=== PATIENT | male | born 1945 | race Caucasian/White ===

== ENCOUNTER 2017-03-13 07:09 | Day surgery (SDC) | payer MEDICARE, OTHER ==
[~2017-03-13] VITALS: Ht 177.8 cm; Wt 77.1 kg
[~2017-03-13 07:09] MED LIST: ASPI325T24 PO; ATOR1TAB21 PO; FOLI1TAB4 PO; IRON65TA PO; METO25TA4 PO; MULT1TAB10 PO; VITA500T PO; folic acid
[2017-03-13] MEDS ORDERED: NS 1,000 ML IV ONE (07:15)
[2017-03-13] MEDS ORDERED: LIDOCAINE 2% INJ 100 MG/5 ML SDV (FOR ANES.) As Ordered ONE (08:21)
[2017-03-13] MEDS ORDERED: PROPOFOL 200 MG/20 ML VIAL As Ordered ONE ×2 (08:21→08:35)
[2017-03-13] MEDS ORDERED: ePHEDrine SULFATE 25 MG/5 ML(5MG/ML) SYRINGE As Ordered ONE (08:22)
--- NOTE | 2017-03-13 08:29 | ROOR ---
Patient Name: Alexandru Ariza Procedure Date: 03/13/2017 8:10 AM Date of : 1945 Age: 71 Room: [facility] Gender: Male Note Status: Finalized Procedure: Upper Endoscopy + Biopsies Indications: Epigastric abdominal pain, Heartburn Providers: Lucas Thao MD Referring MD: Lucas Lou MD Requesting Provider: Medicines: Monitored Anesthesia Care Complications: No immediate complications. Procedure: Pre-Anesthesia Assessment: - The heart rate, respiratory rate, oxygen saturations, blood pressure, adequacy of pulmonary ventilation, and response to care were monitored throughout the procedure. The Endoscope was introduced through the mouth, and advanced to the second part of duodenum. The upper GI endoscopy was accomplished without difficulty. The patient tolerated the procedure well. Findings: The Z-line was regular and was found 40 cm from the incisors. One non-bleeding cratered gastric ulcer with no stigmata of bleeding was found on the posterior wall of the stomach. Biopsies were taken with a cold forceps for histology. Localized mild inflammation characterized by congestion (edema) and erythema was found in the gastric antrum. Biopsies were taken with a cold forceps for Helicobacter pylori testing. The exam of the duodenum was otherwise normal. Impression: - Z-line regular, 40 cm from the incisors. - Non-bleeding gastric ulcer with no stigmata of bleeding. Biopsied. - Chronic gastritis. Biopsied. - The examination was otherwise normal. Recommendation: - Patient has a contact number available for emergencies. The signs and symptoms of potential delayed complications were discussed with the patient. Return to normal activities tomorrow. Written discharge instructions were provided to the patient. - High fiber diet. - Discharge patient to home. - Continue present medications. - Await pathology results. - Telephone GI clinic for pathology results in 1 week. - Check Portal Online for Path Results.([email or web address]) - Return to referring physician. - The findings and recommendations were discussed with the patient's family. Lucas Thao MD Lucas Thao MD 03/13/2017 8:28:52 AM This report has been signed electronically. Number of Addenda: 0 Note Initiated On: 03/13/2017 8:10 AM Estimated Blood Loss: Estimated blood loss: none.
--- NOTE | 2017-03-13 08:49 | ROOR ---
Patient Name: Alexandru Ariza Procedure Date: 03/13/2017 8:12 AM Date of : 1945 Age: 71 Room: [facility] Gender: Male Note Status: Finalized Procedure: Total Colonoscopy to cecum + Biopsy Polypectomy Indications: Screening for colorectal malignant neoplasm Providers: Lucas Thao MD Referring MD: Lucas Lou MD Requesting Provider: Medicines: Monitored Anesthesia Care Complications: No immediate complications. Procedure: Pre-Anesthesia Assessment: - The heart rate, respiratory rate, oxygen saturations, blood pressure, adequacy of pulmonary ventilation, and response to care were monitored throughout the procedure. The Colonoscope was introduced through the anus and advanced to the cecum, identified by appendiceal orifice and ileocecal valve. The colonoscopy was performed without difficulty. The patient tolerated the procedure well. The quality of the bowel preparation was good. Findings: The perianal and digital rectal examinations were normal. Non-bleeding internal hemorrhoids were found during retroflexion. The hemorrhoids were small and Grade I (internal hemorrhoids that do not prolapse). A small polyp was found at 30 cm proximal to the anus. The polyp was sessile. The polyp was removed with a cold biopsy forceps. Resection and retrieval were complete. A small polyp was found in the cecum. The polyp was sessile. The polyp was removed with a jumbo cold forceps. Resection and retrieval were complete. The exam was otherwise without abnormality on direct and retroflexion views. Impression: - Non-bleeding internal hemorrhoids. - One small polyp at 30 cm proximal to the anus, removed with a cold biopsy forceps. Resected and retrieved. - One small polyp in the cecum, removed with a jumbo cold forceps. Resected and retrieved. - The examination was otherwise normal on direct and retroflexion views. - The exam was otherwise normal to the cecum. Recommendation: - Patient has a contact number available for emergencies. The signs and symptoms of potential delayed complications were discussed with the patient. Return to normal activities tomorrow. Written discharge instructions were provided to the patient. - High fiber diet. - Discharge patient to home. - Continue present medications. - Await pathology results. - Telephone GI clinic for pathology results in 1 week. - Repeat colonoscopy in 5 years for surveillance based on pathology results. - Return to referring physician. - Check Portal Online for Path Results.([email or web address] - The findings and recommendations were discussed with the patient's family. Lucas Thao MD Lucas Thao MD 03/13/2017 8:49:08 AM This report has been signed electronically. Number of Addenda: 0 Note Initiated On: 03/13/2017 8:12 AM Estimated Blood Loss: Estimated blood loss: none.
[2017-03-13 09:15] VITALS: BP 114/59
== END 2017-03-13 09:35 | disposition home or self-care (01) ==
LOC: M OPP 07:09
PROVIDERS: ATTEND Internal Medicine Gastroenterology
DX: Z12.11 Encounter for screening for malignant neoplasm of colon (principal); K64.0 First degree hemorrhoids; K63.5 Polyp of colon; R10.13 Epigastric pain; C16.9 Malignant neoplasm of stomach, unspecified; K29.50 Unspecified chronic gastritis without bleeding; E78.5 Hyperlipidemia, unspecified; D64.9 Anemia, unspecified; I25.810 Atherosclerosis of coronary artery bypass graft(s) without angina pectoris; R03.0 Elevated blood-pressure reading, without diagnosis of hypertension; R06.09 Other forms of dyspnea; F43.12 Post-traumatic stress disorder, chronic; Z79.82 Long term (current) use of aspirin; Z79.899 Other long term (current) drug therapy; Z79.891 Long term (current) use of opiate analgesic

== ENCOUNTER → 2017-03-19 | Outpatient (CLI) | payer MEDICARE, OTHER ==
[~2017-03-19] MED LIST changes: +GASTROGRAFIN SOLUTION 30ML (Q9963) As Ordered ONE; +ISOVUE-370 76% 100ML VIAL (Q9967) As Ordered ONE
--- NOTE | 2017-03-19 16:27 | REP ---
Clinical: Gastrointestinal ulceration. Rule out malignancy/metastatic disease. Technique: Axial contrast enhanced images from the thoracic inlet to the upper abdomen using 100 ml Isovue 370 intravenous contrast material with coronal and sagittal re-formations. Comparison: None. Findings: Small left pleural effusion is appreciated with adjacent passive atelectasis. Area of curvilinear presumed scarring along the periphery of the right lower lobe (images 52 - 82) noted. No further consolidation, significant nodule or mass lesion is appreciated. The tracheobronchial tree is patent. Mediastinum demonstrates atherosclerotic changes to the thoracic aorta and coronary arteries without aortic aneurysm/dissection or cardiomegaly. No pericardial effusion. Evidence for prior sternotomy and CABG noted. Osseous structures demonstrate age-related changes without focal osseous abnormality. Impression: 1. Small left pleural effusion and passive atelectasis. 2. Presumed chronic curvilinear scarring along the right lower lobe. Signed by Abhi William MD 03/19/2017 04:19 P
--- NOTE | 2017-03-19 16:29 | REP ---
Clinical: Gastrointestinal ulceration. Rule out malignancy/metastatic disease. Technique: Axial contrast enhanced images from the lung bases to the pubic symphysis using oral and 100 ml Isovue 370 intravenous contrast material with precontrast and delayed images of the abdomen as well as coronal and sagittal re-formations. Comparison: None. Findings: Lung bases demonstrate small left pleural effusion and passive atelectasis along with linear scarring in the periphery of the right lower lobe. Visualized portions of the heart and pericardium suggest prior cardiac surgery. Liver, spleen, pancreas, gallbladder, bilateral adrenal glands and kidneys are normal. The enteric system is without obstruction or acute inflammatory process no obvious focal at abnormalities appreciated. Normal terminal ileum and appendix are identified in the right lower quadrant. Pelvis demonstrates normal bladder and age appropriate prostate/seminal vesicles. No pelvic fluid or ascites. No free air. No obvious adenopathy or solitary mass lesion. Atherosclerotic changes to the aorta and vasculature noted without aneurysm or dissection. Musculoskeletal structures demonstrate age-related degenerative changes without focal osseous abnormality. Impression: 1. Small left pleural effusion with passive atelectasis and chronic scarring in the right lung base. 2. No acute abdominopelvic pathology appreciated. 3. No ascites, adenopathy, or solitary mass lesion appreciated. Signed by Abhi William MD 03/19/2017 04:22 P
== END ==
LOC: M RAD 14:12
PROVIDERS: ATTEND Internal Medicine Gastroenterology
DX: R10.13 Epigastric pain (principal); C16.2 Malignant neoplasm of body of stomach; J90 Pleural effusion, not elsewhere classified; J98.11 Atelectasis
CPT/HCPCS: 71260; 74178; Q9963; Q9967

== ENCOUNTER → 2017-04-02 | Outpatient (CLI) | payer MEDICARE, OTHER ==
[~2017-04-02] MED LIST changes: -GASTROGRAFIN SOLUTION 30ML (Q9963) As Ordered ONE; -ISOVUE-370 76% 100ML VIAL (Q9967) As Ordered ONE
--- NOTE | 2017-04-02 22:14 | REP ---
Whole body PET CT scan: Comparison is a studies are the CT of the chest abdomen and pelvis dated 03/19/2017. Gastric adenocarcinoma was identified on a biopsy specimen obtained during gastroscopy. Whole-body scanning is performed from skull base to the upper thighs. Neck and supraclavicular areas: There are no hypermetabolic foci. Chest: There are no hypermetabolic foci. There is a left pleural effusion. There is no hypermetabolic activity associated with this effusion. Abdomen, pelvis and upper thighs: There is a hypermetabolic focus in the posterior gastric wall along the greater curvature of the gastric body measuring 2.8 cm maximal diameter with a maximal standard uptake value of 4.1. On the accompanying CT, there appears to be focal gastric wall thickening in the location of this hypermetabolic focus, however, it should be noted that CT is insensitive for gastric wall thickening. Because of peristalsis an incomplete gastric distension. There are no other hypermetabolic foci in the abdomen, pelvis or upper thighs. Impression: There is a hypermetabolic focus in the posterior gastric wall as described. There are no other hypermetabolic foci. The studies performed with 10 mCi of F 18 FDG. Signed by David Monge MD 04/02/2017 10:06 P
== END ==
LOC: M PLARAD 10:11
PROVIDERS: ATTEND Surgery
DX: C16.2 Malignant neoplasm of body of stomach (principal); I25.10 Atherosclerotic heart disease of native coronary artery without angina pectoris; E78.5 Hyperlipidemia, unspecified; J90 Pleural effusion, not elsewhere classified
CPT/HCPCS: 78815; A9552

== ENCOUNTER → 2017-05-08 | Outpatient (REF) | payer MEDICARE, OTHER ==
[2017-05-08 16:00] LABS: INR 0.94; PROTHROMBIN TIME 12.7 SECONDS (12.4-14.5)
[2017-05-08 16:01] LABS: PARTIAL THROMBOPLASTIN TIME 28.9 SECONDS (26.8-37.9)
[2017-05-10 17:02] LABS: CARCINOEMBRYONIC ANTIGEN < 0.5 NG/ML (<2.5)
== END ==
LOC: M LAB REF 15:02
DX: C16.9 Malignant neoplasm of stomach, unspecified (principal); Z79.899 Other long term (current) drug therapy
CPT/HCPCS: 82378

== ENCOUNTER → 2017-05-17 | Outpatient (CLI) | payer MEDICARE, OTHER ==
[~2017-05-17] MED LIST changes: -ASPI325T24 PO; -ATOR1TAB21 PO; -FOLI1TAB4 PO; -IRON65TA PO; +LIDOCAINE 2% MDV 20 ML VIAL As Ordered; -METO25TA4 PO; -MULT1TAB10 PO; -VITA500T PO; -folic acid
== END | disposition home or self-care (01) ==
LOC: M IRPRO 09:40
DX: C16.9 Malignant neoplasm of stomach, unspecified (principal)
CPT/HCPCS: 36561

== ENCOUNTER → 2018-01-08 | Outpatient (CLI) | payer MEDICARE, OTHER | END | disposition home or self-care (01) | LOC: M IRPRO 09:13 | DX: Z45.2 Encounter for adjustment and management of vascular access device (principal); C16.9 Malignant neoplasm of stomach, unspecified | CPT/HCPCS: 36590 ==

== ENCOUNTER → 2018-06-30 | Outpatient (CLI) | payer MEDICARE ==
[~2018-06-30] MED LIST changes: +ASPI325T25 PO; +ATOR1TAB21 PO; +ATOR80TA59 PO; +FOLI1TAB11 PO; +GASTROGRAFIN SOLUTION 30ML (Q9963) As Ordered ONE; +IRON65TA PO; +ISOVUE-370 76% 100ML VIAL (Q9967) As Ordered ONE; -LIDOCAINE 2% MDV 20 ML VIAL As Ordered; +METO25TA4 PO; +MULT1TAB10 PO; +VITA500T PO; +VITAD1000T PO; +folic acid
--- NOTE | 2018-06-30 15:51 | REP ---
CT of the chest with IV contrast: Comparison is 07/30/2017. There is a small left pleural effusion, not significantly changed in size. However, the small nodules along the visceral pleura associated with this pleural effusion on the prior study are no longer present. There are no lung masses or nodules. There are zones of fibro linear scarring in the superior segment right lower lobe, unchanged. Sternotomy wires are again noted. The thoracic aorta is unremarkable. Cardiac size is normal. There is no pericardial effusion. Impression: Persisting small left pleural effusion, unchanged in size. The pleural nodular thickening identified associated with this effusion previously is no longer present. There is a small pericardial effusion, unchanged. No adenopathy. No masses or nodules. Electronically Signed by David Monge MD 06/30/2018 03:42 P
--- NOTE | 2018-06-30 16:02 | REP ---
CT of the abdomen pelvis with IV and oral contrast: Comparison is 07/30/2017. There is a small left pleural effusion, unchanged in size. The small pleural nodules associated with this effusion previously are no longer present. The hepatic parenchyma is homogeneous. The gallbladder and pancreas are unremarkable. There are surgical clips in the upper abdomen, as an interval change. The spleen is of normal size and unremarkable. The adrenals and kidneys are unremarkable. The abdominal aorta is unremarkable except for occasional calcified atheroma. No periaortic adenopathy is identified. No mesenteric adenopathy is identified. There is no ascites. Pelvis: There is no adenopathy or ascites. However, there is minimal body fat outlining tissue planes. The bladder is unremarkable. Impression: There is no adenopathy, mass or ascites. There are surgical clips in the upper abdomen as an interval change. Persisting small left pleural effusion. Small pleural nodules associated with this effusion previously are no longer present. Electronically Signed by David Monge MD 06/30/2018 03:54 P
== END ==
LOC: M RAD 12:11
PROVIDERS: ATTEND Nurse Practitioner Family
DX: C16.9 Malignant neoplasm of stomach, unspecified (principal); J90 Pleural effusion, not elsewhere classified; I31.3 Pericardial effusion (noninflammatory)
CPT/HCPCS: 71260; 74177; Q9963; Q9967

== ENCOUNTER 2018-09-01 07:36 | Day surgery (SDC) | payer MEDICARE ==
[~2018-09-01] VITALS: Ht 177.8 cm; Wt 64.6 kg
[~2018-09-01 07:36] MED LIST changes: +ASPI-255 PO; -ASPI325T25 PO; +ASPI81TA26 PO; -GASTROGRAFIN SOLUTION 30ML (Q9963) As Ordered ONE; -ISOVUE-370 76% 100ML VIAL (Q9967) As Ordered ONE; +MULTCAP PO; +NS 1,000 ML IV ONE
[2018-09-01] MEDS ORDERED: PROPOFOL 500 MG/50 ML VIAL As Ordered ONE (10:46)
[2018-09-01] MEDS ORDERED: LIDOCAINE 2% INJ 100 MG/5 ML SDV (FOR ANES.) As Ordered ONE (10:46)
[2018-09-01] MEDS ORDERED: fentaNYL 100 MCG/2 ML INJECTION (J3010) As Ordered ONE (10:46)
--- NOTE | 2018-09-01 10:59 | ROOR ---
Patient Name: Alexandru Ariza Procedure Date: 09/01/2018 10:48 AM Date of : 1945 Age: 72 Room: [facility] Gender: Male Note Status: Finalized Procedure: Upper GI endoscopy Indications: Personal history of gastrectomy, Personal history of malignant gastric neoplasm Providers: Lucas Thao MD Referring MD: Lucas BRYAN MD Requesting Provider: Medicines: Monitored Anesthesia Care Complications: No immediate complications. Procedure: Pre-Anesthesia Assessment: - The heart rate, respiratory rate, oxygen saturations, blood pressure, adequacy of pulmonary ventilation, and response to care were monitored throughout the procedure. The Endoscope was introduced through the mouth, and advanced to the operative stoma of duodenum. The upper GI endoscopy was accomplished without difficulty. The patient tolerated the procedure well. Findings: The Z-line was regular and was found 40 cm from the incisors. 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 This was characterized by healthy appearing mucosa. The exam was otherwise without abnormality. Impression: - Z-line regular, 40 cm from the incisors. - A sleeve gastrectomy was found, characterized by healthy appearing mucosa. - The examination was otherwise normal. - No specimens collected. - The examination was otherwise normal. Recommendation: - Patient has a contact number available for emergencies. The signs and symptoms of potential delayed complications were discussed with the patient. Return to normal activities tomorrow. Written discharge instructions were provided to the patient. - Resume previous diet. - Discharge patient to home. - Continue present medications. - Return to referring physician. - The findings and recommendations were discussed with the patient's family. Lucas Thao MD Lucas Thao MD 09/01/2018 10:59:08 AM Electronically signed by Lucas Thao MD Number of Addenda: 0 Note Initiated On: 09/01/2018 10:48 AM Estimated Blood Loss: Estimated blood loss: none.
[2018-09-01 11:17] VITALS: BP 108/62
== END 2018-09-01 11:27 | disposition home or self-care (01) ==
LOC: M OPP 07:36
PROVIDERS: ATTEND Internal Medicine Gastroenterology
DX: Z85.028 Personal history of other malignant neoplasm of stomach (principal); Z90.3 Acquired absence of stomach [part of]
CPT/HCPCS: 43235; J3010

== ENCOUNTER → 2019-06-08 | Outpatient (CLI) | payer OTHER, MEDICARE ==
[~2019-06-08] MED LIST changes: +CHOL100029 PO; +GASTROGRAFIN SOLUTION 30ML (Q9963) As Ordered ONE; +ISOVUE-370 76% 100ML VIAL (Q9967) As Ordered ONE; -NS 1,000 ML IV ONE; -VITAD1000T PO
--- NOTE | 2019-06-08 16:15 | REP ---
Clinical: Gastric carcinoma. Technique: Axial contrast enhanced images from the thoracic inlet to the upper abdomen with coronal and sagittal re-formations using 100 ml Isovue 370 intravenous contrast material. Comparison: 06/30/2018, 07/30/2017 Findings: Bilateral lung renae are well-aerated and clear. Previously noted left pleural effusion has resolved. Minimal scattered chronic scarring noted at the lung bases (right greater than left). No consolidation, significant nodule or mass lesion. No pleural effusion. No pneumothorax. Tracheobronchial tree is patent. No significant adenopathy. Mediastinum demonstrates evidence for prior CABG. Osseous structures without focal abnormality. Impression: Chronic stable changes. No acute mediastinal or pleuroparenchymal process. No evidence for metastatic disease. Electronically Signed by Abhi William MD 06/08/2019 04:06 P
--- NOTE | 2019-06-08 16:18 | REP ---
Clinical: History of gastric carcinoma for followup. Technique: Axial contrast enhanced images from the lung bases to the pubic symphysis using oral (per protocol) and 100 ml Isovue 370 intravenous contrast material with coronal and sagittal re-formations as well as delayed images of the abdomen. Comparison: 06/30/2018, 07/30/2017 Findings: Postsurgical changes in the epigastric region related to the stomach remains stable and there is no evidence for obvious focal recurrence, mass or adenopathy. Liver, spleen, pancreas, gallbladder, bilateral adrenal glands and kidneys are normal. The enteric system is without obstruction or acute inflammatory process although mild fecal stasis cannot be excluded. Pelvis demonstrates normal bladder and age appropriate prostate/seminal vesicles. No ascites. No free air. No obvious intraperitoneal or retroperitoneal adenopathy. No obvious intra-abdominal mass lesion. Abdominal aorta and vasculature demonstrate atherosclerotic changes without aneurysm or dissection. Musculoskeletal structures demonstrate degenerative changes without focal abnormality. Impression: Postsurgical changes in the upper abdomen remains stable and there is no evidence for focal recurrence or metastatic disease. No adenopathy. No ascites. Electronically Signed by Abhi William MD 06/08/2019 04:10 P
== END ==
LOC: M RAD 13:50
PROVIDERS: ATTEND Internal Medicine
DX: C16.9 Malignant neoplasm of stomach, unspecified (principal)
CPT/HCPCS: 71260; 74177; Q9963; Q9967

== ENCOUNTER → 2020-09-07 | Outpatient (CLI) | payer OTHER, MEDICARE ==
[~2020-09-07] MED LIST changes: -GASTROGRAFIN SOLUTION 30ML (Q9963) As Ordered ONE; -ISOVUE-370 76% 100ML VIAL (Q9967) As Ordered ONE; +MAGN400C PO; +VITA-243 PO; -VITA500T PO
== END ==
LOC: M LABSMTC 11:20
PROVIDERS: ATTEND Anesthesiology
DX: Z01.812 Encounter for preprocedural laboratory examination (principal); Z20.822 Contact with and (suspected) exposure to COVID-19

== ENCOUNTER 2020-09-12 10:05 | Day surgery (SDC) | payer MEDICARE, OTHER ==
[~2020-09-12] VITALS: Ht 175.3 cm; Wt 63.5 kg
[~2020-09-12 10:05] MED LIST changes: +LIDOCAINE 2% 100MG/5ML SDV (FOR ANES.) As Ordered ONE; +NS 1,000 ML IV ONE; +propofoL 500 MG/50 ML VIAL As Ordered ONE
[2020-09-12] MEDS ORDERED: ePHEDrine SULFATE 25 MG/5 ML(5MG/ML) SYRINGE As Ordered ONE (11:32)
--- NOTE | 2020-09-12 11:33 | ROOR ---
Patient Name: Alexandru Ariza Procedure Date: 09/12/2020 11:18 AM Date of : 1945 Age: 74 Room: [facility] Gender: Male Note Status: Finalized Procedure: Upper GI endoscopy Indications: Abnormal CT of the GI tract Providers: Lucas Thao MD Referring MD: [facility], Admin. Requesting Provider: Medicines: Monitored Anesthesia Care Complications: No immediate complications. Procedure: Pre-Anesthesia Assessment: - The heart rate, respiratory rate, oxygen saturations, blood pressure, adequacy of pulmonary ventilation, and response to care were monitored throughout the procedure. The Endoscope was introduced through the mouth, and advanced to the second part of duodenum. The upper GI endoscopy was accomplished without difficulty. The patient tolerated the procedure well. Findings: The Z-line was regular and was found 40 cm from the incisors. Evidence of a Jayson-en-Y gastrojejunostomy was found. The gastrojejunal anastomosis was characterized by healthy appearing mucosa. The jejunojejunal anastomosis was characterized by healthy appearing mucosa. The exam was otherwise without abnormality. Impression: - Z-line regular, 40 cm from the incisors. - Jayson-en-Y gastrojejunostomy with gastrojejunal anastomosis characterized by healthy appearing mucosa. - The examination was otherwise normal. - No specimens collected. - The examination was otherwise normal. Recommendation: - Patient has a contact number available for emergencies. The signs and symptoms of potential delayed complications were discussed with the patient. Return to normal activities tomorrow. Written discharge instructions were provided to the patient. - Resume previous diet. - Discharge patient to home. - Continue present medications. - Return to referring physician. - The findings and recommendations were discussed with the patient's family. Procedure Code(s): --- Professional --- 60027, Esophagogastroduodenoscopy, flexible, transoral; diagnostic, including collection of specimen(s) by brushing or washing, when performed (separate procedure) Diagnosis Code(s): --- Professional --- Z98.0, Intestinal bypass and anastomosis status R93.3, Abnormal findings on diagnostic imaging of other parts of digestive tract CPT copyright 2019 [employer]. All rights reserved. The codes documented in this report are preliminary and upon information coder review may be revised to meet current compliance requirements. Lucas Thao MD Lucas Thao MD 09/12/2020 11:33:14 AM Electronically signed by Lucas Thao MD Number of Addenda: 0 Note Initiated On: 09/12/2020 11:18 AM Estimated Blood Loss: Estimated blood loss: none.
[2020-09-12] MEDS ORDERED: fentaNYL 100 MCG/2 ML INJECTION (J3010) As Ordered ONE (11:35)
--- NOTE | 2020-09-12 11:54 | ROOR ---
Patient Name: Alexandru Ariza Procedure Date: 09/12/2020 11:18 AM Date of : 1945 Age: 74 Room: [facility] Gender: Male Note Status: Finalized Procedure: Total Colonoscopy to Cecum Indications: Abnormal CT of the GI tract Providers: Lucas Thao MD Referring MD: [facility], Admin. Requesting Provider: Medicines: Monitored Anesthesia Care Complications: No immediate complications. Procedure: Pre-Anesthesia Assessment: - The heart rate, respiratory rate, oxygen saturations, blood pressure, adequacy of pulmonary ventilation, and response to care were monitored throughout the procedure. The Colonoscope was introduced through the anus and advanced to the cecum, identified by appendiceal orifice and ileocecal valve. The colonoscopy was performed without difficulty. The patient tolerated the procedure well. The quality of the bowel preparation was good. Findings: The perianal and digital rectal examinations were normal. Hemorrhoids were found during retroflexion. The hemorrhoids were small and Grade I (internal hemorrhoids that do not prolapse). No other significant abnormalities were identified in a careful examination of the remainder of the colon. The exam was otherwise without abnormality on direct and retroflexion views. Impression: - Hemorrhoids. - The examination was otherwise normal on direct and retroflexion views. - No specimens collected. - The exam was otherwise normal to the cecum. Recommendation: - Patient has a contact number available for emergencies. The signs and symptoms of potential delayed complications were discussed with the patient. Return to normal activities tomorrow. Written discharge instructions were provided to the patient. - High fiber diet. - Discharge patient to home. - Continue present medications. - Repeat colonoscopy is not recommended due to current age (66 years or older) for screening purposes. - Return to referring physician. - The findings and recommendations were discussed with the patient's family. Procedure Code(s): --- Professional --- 45797, Colonoscopy, flexible; diagnostic, including collection of specimen(s) by brushing or washing, when performed (separate procedure) Diagnosis Code(s): --- Professional --- K64.0, First degree hemorrhoids R93.3, Abnormal findings on diagnostic imaging of other parts of digestive tract CPT copyright 2019 [employer]. All rights reserved. The codes documented in this report are preliminary and upon dinkey engine firer/fireman review may be revised to meet current compliance requirements. Lucas Thao MD Lucas Thao MD 09/12/2020 11:53:51 AM Electronically signed by Lucas Thao MD Number of Addenda: 0 Note Initiated On: 09/12/2020 11:18 AM Estimated Blood Loss: Estimated blood loss: none.
[2020-09-12 12:30] VITALS: BP 113/65
== END 2020-09-12 12:35 | disposition home or self-care (01) ==
LOC: M OPP 10:05
PROVIDERS: ATTEND Internal Medicine Gastroenterology
DX: R93.3 Abnormal findings on diagnostic imaging of other parts of digestive tract (principal); Z98.0 Intestinal bypass and anastomosis status; K64.0 First degree hemorrhoids; C16.9 Malignant neoplasm of stomach, unspecified; Z79.899 Other long term (current) drug therapy; Z87.891 Personal history of nicotine dependence
CPT/HCPCS: 43235; 45378; J3010

== ENCOUNTER → 2021-09-26 | Outpatient (CLI) | payer OTHER ==
[~2021-09-26] MED LIST changes: +CYAN1000VL IM; +GASTROGRAFIN SOLUTION 30ML (Q9963) As Ordered ONE; +ISOVUE-370 76% 100ML VIAL As Ordered ONE; -LIDOCAINE 2% 100MG/5ML SDV (FOR ANES.) As Ordered ONE; -NS 1,000 ML IV ONE; -propofoL 500 MG/50 ML VIAL As Ordered ONE
== END ==
LOC: M RAD 12:16
PROVIDERS: ATTEND Internal Medicine Hematology & Oncology
DX: C16.2 Malignant neoplasm of body of stomach (principal); Z90.49 Acquired absence of other specified parts of digestive tract; I70.0 Atherosclerosis of aorta; K59.00 Constipation, unspecified; M47.817 Spondylosis without myelopathy or radiculopathy, lumbosacral region
CPT/HCPCS: 71260; 74177; Q9963; Q9967

== ENCOUNTER → 2022-05-24 | Outpatient (CLI) | payer MEDICARE, OTHER ==
[~2022-05-24] MED LIST changes: -GASTROGRAFIN SOLUTION 30ML (Q9963) As Ordered ONE; +IRON27TA2 PO; -ISOVUE-370 76% 100ML VIAL As Ordered ONE; +MULT-90 PO; +VITA100093 PO
== END ==
LOC: M LABSMTC 09:06
PROVIDERS: ATTEND Anesthesiology
DX: Z01.818 Encounter for other preprocedural examination (principal)

== ENCOUNTER 2022-05-29 06:08 | Day surgery (SDC) | payer MEDICARE, OTHER ==
[~2022-05-29] VITALS: Ht 175.3 cm; Wt 62.6 kg
[~2022-05-29 06:08] MED LIST changes: +CYCLOPENTOLATE 1% OPHTH SOLN 2ML BTL OD SCH; +OFLOXACIN 0.3 % (OCUFLOX) OPTH SOL 5ML OD SCH; +PHENYLEPHRINE 2.5% OPHTH SOL 2ML OD SCH; +PROPARACAINE 0.5% OPHTH SOL 15ML OD ONE; +TROPICAMIDE 1% OPHTH SOLN 15ML OD SCH
[2022-05-29] MEDS ORDERED: LIDOCAINE 1% SDV 5ML VIAL As Ordered ONE (06:29)
[2022-05-29] MEDS ORDERED: CEFUROXIME 1MG/0.1ML INTRACAMERAL INJ As Ordered ONE (06:30)
[2022-05-29] MEDS ORDERED: BSS IRR 500ML/OMIDRIA 4ML IRR BAG (OR ONLY) As Ordered ONE (06:30)
[2022-05-29 08:06] VITALS: BP 122/67
== END 2022-05-29 08:15 | disposition home or self-care (01) ==
LOC: M SDC 06:08
PROVIDERS: ATTEND Ophthalmology
DX: H25.11 Age-related nuclear cataract, right eye (principal); I25.10 Atherosclerotic heart disease of native coronary artery without angina pectoris; E78.5 Hyperlipidemia, unspecified; Z85.028 Personal history of other malignant neoplasm of stomach; D64.9 Anemia, unspecified; G43.909 Migraine, unspecified, not intractable, without status migrainosus; F43.10 Post-traumatic stress disorder, unspecified; Z87.891 Personal history of nicotine dependence; Z95.5 Presence of coronary angioplasty implant and graft; Z79.82 Long term (current) use of aspirin; Z79.899 Other long term (current) drug therapy
CPT/HCPCS: 66984; J1097; V2632

== ENCOUNTER → 2023-08-16 | Outpatient (CLI) | payer OTHER, MEDICARE ==
[~2023-08-16] MED LIST changes: +ATOR40TA75 PO; -CYCLOPENTOLATE 1% OPHTH SOLN 2ML BTL OD SCH; -OFLOXACIN 0.3 % (OCUFLOX) OPTH SOL 5ML OD SCH; -PHENYLEPHRINE 2.5% OPHTH SOL 2ML OD SCH; -PROPARACAINE 0.5% OPHTH SOL 15ML OD ONE; -TROPICAMIDE 1% OPHTH SOLN 15ML OD SCH
== END ==
LOC: M PLAIMG 07:22
PROVIDERS: ATTEND Physician Assistant
DX: I77.810 Thoracic aortic ectasia (principal); I08.0 Rheumatic disorders of both mitral and aortic valves; I50.30 Unspecified diastolic (congestive) heart failure

== ENCOUNTER → 2023-08-22 | Outpatient (CLI) | payer OTHER, MEDICARE | LOC: M RAD 11:12 | PROVIDERS: ATTEND Physician Assistant | DX: R09.89 Other specified symptoms and signs involving the circulatory and respiratory systems (principal) ==